=== PATIENT | male | born 1960 | race Caucasian/White ===

== ENCOUNTER 2016-06-30 15:49 | Emergency (ER) | payer OTHER ==
[~2016-06-30] VITALS: Ht 177.8 cm; Wt 81.5 kg
[2016-06-30] MEDS ORDERED: OXYcodone/APAP 5/325MG TABLET PO ONE (16:30)
[2016-06-30 16:44] VITALS: BP 164/98
== END 2016-06-30 17:24 | disposition home or self-care (01) ==
LOC: ED 17:18
DX: M54.6 Pain in thoracic spine (principal); Z87.891 Personal history of nicotine dependence
CPT/HCPCS: 72050; 72072